=== PATIENT | male | born 1970 ===

== ENCOUNTER → 2016-12-03 | Outpatient (REF) | payer BC ==
[2016-12-03 09:05] LABS: ANION GAP 13.9 MEQ/L (3-15); CALCULATED IONIZED CALCIUM 4.1 mg/dL (3.8-4.6); TOTAL PROTEIN 7.3 g/dL (6.4-8.5)
== END ==
LOC: LAB 08:19
PROVIDERS: ATTEND Nurse Practitioner Family
DX: E78.4 Other hyperlipidemia (principal)
CPT/HCPCS: 80053; 80061; 83036